=== PATIENT | male | born 1940 | race Caucasian/White ===

== ENCOUNTER 2016-09-09 12:34 | Observation (INO) ==
--- NOTE | 2016-09-09 14:15 | Emergency Department Note ---
Disposition Clinical Impression: Hypoxia, Cough, Low oxygen saturation Disposition: Admitted As Inpatient Condition: Good Time of Disposition: 19:04 General Adult HPI - General Chief complaint: ED Shortness of Breath/Dyspnea Stated complaint: O2 low sent by pcp Time Seen by Provider: 09/09/16 14:14 Source: patient, family Limitations: no limitations Nursing Notes Reviewed: Yes Vital Signs Reviewed: Yes - History of Present Illness HPI Narrative: Patient complaining of a greater than two-week history of generalized weakness. Also shortness of breath and cough. His been a productive cough with yellow sputum. Subjective fevers at home. Denies any history of COPD or asthma. Denies any chest pain. Reports that he does not wear oxygen at home however today at urgent care his oxygen saturation was low. He did have a chest x-ray at urgent care that was read as normal. Pain Scale: 5 - Related Data Home Medications Medication Instructions Recorded Confirmed Allopurinol [Zyloprim 100 MG] 200 mg PO DAILY 09/09/16 09/09/16 Aspirin 325 mg PO DAILY 09/09/16 09/09/16 Atorvastatin [Lipitor] 40 mg PO HS 09/09/16 09/09/16 Citalopram Hydrobromide [Celexa] 40 mg PO DAILY 09/09/16 09/09/16 Clopidogrel Bisulfate [Plavix] 75 mg PO DAILY 09/09/16 09/09/16 Isosorbide MONOnitrate (24 HR) 30 mg PO DAILY 09/09/16 09/09/16 [Imdur] Lisinopril [Zestril] 20 mg PO DAILY 09/09/16 09/09/16 Memantine HCl/Donepezil HCl 1 each PO QPM 09/09/16 09/09/16 [Namzaric 28 mg-10 mg Capsule] Metoprolol [Lopressor] 12.5 mg PO QPM 09/09/16 09/09/16 Nitroglycerin [Nitrostat] 0.4 mg SL Q5M PRN 09/09/16 09/09/16 Omeprazole [PriLOSEC] 40 mg PO BID 09/09/16 09/09/16 Potassium Chloride [Klor-Con 10] 10 meq PO DAILY 09/09/16 09/09/16 Quetiapine Fumarate [Seroquel] 25 mg PO QAM 09/09/16 09/09/16 Quetiapine Fumarate [Seroquel] 37.5 mg PO HS 09/09/16 09/09/16 Tamsulosin [Flomax] 0.4 mg PO DAILY 09/09/16 09/09/16 Tramadol HCl [Ultram] 50 mg PO TID PRN 09/09/16 09/09/16 Triamcinolone Acet 0.1% CRM 1 appl TP BID 09/09/16 09/09/16 [Kenalog] clonazePAM [Klonopin] 0.5 mg PO HS 09/09/16 09/09/16 metFORMIN [Glucophage] 500 mg PO DAILY 09/09/16 09/09/16 Allergies Allergy/AdvReac Type Severity Reaction Status Date / Time Penicillins Allergy Rash Verified 05/12/15 08:28 All systems ED: reviewed and negative except as stated. Constitutional: Reports: chills. Denies: fever Cardiovascular: Reports: dyspnea on exertion. Denies: chest pain, palpitations , syncope Respiratory: Reports: cough, dyspnea, sputum production (Yellow for 2 weeks). Denies: wheezes Gastrointestinal: Denies: abdominal pain, nausea, vomiting, diarrhea Genitourinary: Denies: urgency, dysuria, frequency Musculoskeletal: Denies: back pain, neck pain Integumentary: Denies: rash Neurological: Denies: headache, weakness Psychiatric: Denies: anxiety, depression Past Medical History - Past Medical History Medical history: Reports: arthritis, coronary artery disease, dementia, diabetes , hypertension, other Surgical history: Reports: orthopedic, other (Left total knee replacement; Right hand surgery; Right total knee replacement 01/30/2015), pacemaker/AICD Psychiatric history: Reports: depression - Social History Smoking Status: Never smoker Smokeless Tobacco Status: No Alcohol use: Reports: none Drug use: Reports: none Physical Exam - General Limitations: no limitations General appearance: alert, in no apparent distress - Head Head exam: atraumatic, normocephalic, normal inspection - Eye Eye exam: Present: normal appearance, PERRL, EOMI. Absent: scleral icterus - ENT ENT exam: normal exam, normal oropharynx, mucous membranes moist - Neck Neck exam: Present: normal inspection, full ROM, trachea midline. Absent: tenderness, meningismus, lymphadenopathy - Chest Chest inspection: Present: normal inspection, symmetric chest wall rise. Absent : tenderness - Respiratory Respiratory exam: Present: normal lung sounds bilaterally, other (Mildly diminished in lower lobes.). Absent: respiratory distress, wheezes, accessory muscle use - Cardiovascular Cardiovascular exam: Present: regular rate, normal rhythm, normal heart sounds - Abdominal Exam Abdominal exam: Present: soft, Non-Tender, normal bowel sounds. Absent: tenderness, distention, guarding, rebound, rigidity - Extremities Exam Extremities exam: Present: normal inspection, full ROM, normal capillary refill. Absent: tenderness, pedal edema - Neurological Exam Neurological exam: Present: alert, oriented X3 - Psychiatric Psychiatric exam: Present: normal affect, normal mood - Skin Skin exam: Present: warm, dry, intact. Absent: normal color (No paraoral cyanosis.), rash, cyanosis, diaphoresis, erythema Course Course Narrative: Patient presents the emergency department complaining of 4 week history of productive cough with yellow sputum and shortness of breath. This he has had intermittent chills. Denies checking his temperature at home. Denies any history of COPD or asthma. States that he did try to take antibiotics at home that were left over her previous illness. States that he just has not been feeling well over the past 4 weeks. Denies any chest pain nausea vomiting or diarrhea. Does appear that he has some perioral cyanosis and is 92% on 2 L via nasal cannula. Chest x-ray at urgent care was negative. Due to patient's dyspnea on exertion and dyspnea at rest as well as his hypoxia we will scan patient's chest. We will also do a basic cardiac workup on the patient. His lung sounds are clear. Heart tones are normal. He does not appear fluid overloaded at this time. There is no edema that I can appreciate anywhere. He is not using accessory muscles or tripoding however he does report shortness of breath. - Reevaluation(s) Reevaluation #1: Patient's oxygen saturation is in the low 90s on 2 L at rest. His CTA is negative. Basic lab workup was also negative. He does have a mild AK I. We will admit patient to the hospital for hypoxia. He is agreeable to this. Time: 15:38 Vital Signs Temperature 97.7 F 09/09/16 12:40 Pulse Rate 87 09/09/16 12:40 Respiratory Rate 18 09/09/16 12:40 Blood Pressure 125/76 09/09/16 12:40 O2 Sat by Pulse Oximetry 90 09/09/16 12:40 Temperature 98.0 F 09/09/16 18:30 Pulse Rate 82 09/09/16 17:44 Respiratory Rate 16 09/09/16 18:39 Blood Pressure 121/83 09/09/16 18:30 O2 Sat by Pulse Oximetry 92 09/09/16 18:39 Oxygen Delivery Oxygen Delivery Nasal Cannula Medical Decision Making - Medical Records Medical records reviewed: Yes I reviewed the patient's medical records. - Lab Data Lab results reviewed: Yes I reviewed the patient's lab results. Result diagrams: 09/09/16 14:18 09/09/16 14:18 Lab Results 09/09/16 09/09/16 09/09/16 Range/Units 14:18 14:18 14:18 WBC 7.5 (4.3-11.1) K/mcL RBC 4.93 (4.19-5.50) M/mcL Hgb 14.3 (12.9-16.9) g/dL Hct 44.3 (37.5-50.1) % MCV 89.9 (83.0-100.0) fL MCH 29.0 (28.0-33.3) pg MCHC 32.3 (31.6-35.5) g/dL RDW 14.6 H (11.5-14.5) % Plt Count 161 (140-400) K/mcL MPV 10.6 (9.4-12.4) fL Immature Gran % 0.5 (0-4) % Seg Neutrophils % 64.1 % Lymphocytes % 20.8 % Monocytes % 10.5 % Eosinophils % 3.6 % Basophils % 0.5 % Neutrophils # 4.8 (1.6-8.9) K/mcL Lymphocytes # 1.6 (0.6-4.6) K/mcL Monocytes # 0.8 (0.0-1.3) K/mcL Eosinophils # 0.3 (0.0-0.6) K/mcL Basophils # 0.0 (0.0-0.2) K/mcL Sodium 138 (136-145) mEq/L Potassium 4.8 H (3.5-4.5) mEq/L Chloride 102 (98-109) mEq/L Carbon Dioxide 29 (19-29) mEq/L BUN 18 (8-26) mg/dL Creatinine 1.54 H (0.72-1.25) mg/dL Est GFR ( Amer) 54 L (> 60) Est GFR (Non-Af Amer) 44 L (> 60) BUN/Creatinine Ratio 12 (6-26) Glucose 100 H (70-99) mg/dL Calculated Osmolality 288 (280-300) Lactic Acid 1.9 (0.5-2.2) mmol/L Calcium 10.5 (8.6-10.8) mg/dL Troponin I (0-0.03) ng/mL B-Natriuretic Peptide (0-100) pg/mL 09/09/16 09/09/16 Range/Units 14:18 14:18 WBC (4.3-11.1) K/mcL RBC (4.19-5.50) M/mcL Hgb (12.9-16.9) g/dL Hct (37.5-50.1) % MCV (83.0-100.0) fL MCH (28.0-33.3) pg MCHC (31.6-35.5) g/dL RDW (11.5-14.5) % Plt Count (140-400) K/mcL MPV (9.4-12.4) fL Immature Gran % (0-4) % Seg Neutrophils % % Lymphocytes % % Monocytes % % Eosinophils % % Basophils % % Neutrophils # (1.6-8.9) K/mcL Lymphocytes # (0.6-4.6) K/mcL Monocytes # (0.0-1.3) K/mcL Eosinophils # (0.0-0.6) K/mcL Basophils # (0.0-0.2) K/mcL Sodium (136-145) mEq/L Potassium (3.5-4.5) mEq/L Chloride (98-109) mEq/L Carbon Dioxide (19-29) mEq/L BUN (8-26) mg/dL Creatinine (0.72-1.25) mg/dL Est GFR ( Amer) (> 60) Est GFR (Non-Af Amer) (> 60) BUN/Creatinine Ratio (6-26) Glucose (70-99) mg/dL Calculated Osmolality (280-300) Lactic Acid (0.5-2.2) mmol/L Calcium (8.6-10.8) mg/dL Troponin I 0.01 (0-0.03) ng/mL B-Natriuretic Peptide 20 (0-100) pg/mL - Radiology Data Radiology results reviewed: Yes I reviewed the patient's radiology results. Chest CTA 09/09/16 14:23 IMPRESSION: No evidence of pulmonary embolism when accounting for motion artifact. No acute pulmonary abnormality. D/ / Kevan Nowak MD / Kevan Nowak MD Interpreting Provider: Kevan Nowak MD - EKG Data EKG #1 EKG attestation: Yes I reviewed and interpreted this EKG. EKG results narrative: Normal sinus rhythm at a rate of 75. TX interval was 200. Respirations 23. QT is 367. QTC is 391. No signs of acute ischemia. No significant change from previous EKG dated 07/11/2016. Attestation Statement - Attestation Attestation: I examined this patient and my medical decision-making was reviewed with the Resident Physician. I agree with the documented findings, disposition and treatment plan as described except to the extent set forth below. Patient to the emergency department with shortness of breath. Weakness. Patient states he just does not feel like doing anything and that is not like him. He went to urgent care with hypoxic sustaining her for further evaluation. X-ray was clear at that time. On examination he is laying in bed in no acute distress. Lungs are diminished. Plan. We will check CTA. Creatinine slightly elevated. We will give him a fluid bolus as his baseline is lower than this.
[2016-09-09 14:26] LABS: Basophils % 0.5 %; Eosinophils # 0.3 K/mcL (0.0-0.6); Eosinophils % 3.6 %; Hematocrit 44.3 % (37.5-50.1); Hemoglobin 14.3 g/dL (12.9-16.9); Immature Granulocytes % 0.5 % (0-4); Lymphocytes # 1.6 K/mcL (0.6-4.6); Lymphocytes % 20.8 %; Mean Corpuscular HGB Conc 32.3 g/dL (31.6-35.5); Mean Corpuscular Volume 89.9 fL (83.0-100.0); Mean Platelet Volume 10.6 fL (9.4-12.4); Monocytes # 0.8 K/mcL (0.0-1.3); Monocytes % 10.5 %; Neutrophils # 4.8 K/mcL (1.6-8.9); Platelet Count 161 K/mcL (140-400); Red Blood Count 4.93 M/mcL (4.19-5.50); Red Cell Distribution Width 14.6 % (11.5-14.5); Segmented Neutrophils % 64.1 %
[2016-09-09] MEDS ORDERED: 0.9 % Sodium Chloride 500 ML IVC ONE (14:38)
[2016-09-09 14:39] LABS: Calcium 10.5 mg/dL (8.6-10.8); Potassium 4.8 mEq/L (3.5-4.5)
[2016-09-09] MEDS ORDERED: Ipratropium/Albuterol Neb 3 ML IH ONE (17:55)
[2016-09-09] MEDS ORDERED: methylPREDNISolone 125 MG/2 ML VIAL IVP ONE (17:55)
[2016-09-09] MEDS ORDERED: Nitroglycerin 0.4 MG TAB.SUBL SL PRN (21:57)
[2016-09-09] MEDS ORDERED: Naloxone 0.4 MG/ML INJ IVP PRN (21:59)
[2016-09-09] MEDS ORDERED: Dextrose Gel 15 GM PO PRN ×2 (21:59)
[2016-09-09] MEDS ORDERED: D5% in Water 1,000 ML IVC PRN (21:59)
[2016-09-09] MEDS ORDERED: *HR* Dextrose 50 % in Water (Syg) 50 ML SYRINGE IVP PRN (21:59)
[2016-09-09] MEDS ORDERED: Ipratropium/Albuterol Neb 3 ML IH PRN (22:02)
--- NOTE | 2016-09-09 22:08 | Internal Med History&Physical ---
Date of Encounter: 09/09/16 Time of Encounter: 22:04 Assessment and Plan (1) Acute respiratory failure Current visit: Yes Status: Acute CTPE wnl. Check TTE, check for pulm HTN. Consult pulm to assist with eval. Hydration for post contrast exposure with CTPE Qualifiers: Qualified Code(s): J96.01 - Acute respiratory failure with hypoxia (2) Hypoxia Current visit: Yes Status: Acute uncertain etiology. Pending further evaluation with pulm assistance (3) DMII (diabetes mellitus, type 2) Current visit: Yes Status: Acute hold metformin. ISS Qualifiers: Qualified Code(s): E11.9 - Type 2 diabetes mellitus without complications (4) CAD (coronary artery disease) Current visit: Yes Status: Acute continue current meds. CAD s/p stents Qualifiers: Qualified Code(s): I25.10 - Atherosclerotic heart disease of [place] coronary artery without angina pectoris (5) Physical deconditioning Current visit: Yes Status: Acute PT eval for suitability for home vs placement Internal Medicine - H&P: HPI Chief complaint: SOB History of present illness: Mr. Hughes is a 76 year old male with hx of CAD s/p stent in and , hx of CHF s/p pacer but surgeon said his heart had been back to normal and didn't require pacer, DMII, neuropathy, HTN who presents with worsening subacute on chronic SOB. He says that he has noticed SOB for the last 1 year now but in the last 6 weeks, noted increasing SOB with cough productive of yellow sputum. He does not use oxygen at baseline. He tells me that he does not smoke. Associated with 2 week hx of generalized fatigue and weakness due to SOB and not ambulatory. Went to urgent care today and found hypoxia. CTPE in the ED was wnl. EKG reviewed by self rate 75, unchanged BBB from prior Past Med Surg Social Fam HX - Past Medical History Medical history: arthritis, coronary artery disease, dementia, diabetes, hypertension, other Psychiatric history: depression - Past Surgical History Surgical History: orthopedic, other, pacemaker/AICD - Social History Smoking Status: Never smoker Smokeless Tobacco Status: No Alcohol use: none Drug use: none - Family History Mother History Unknown: Yes Internal Medicine - H&P: Meds Allopurinol [Zyloprim 100 MG] 200 mg PO DAILY 09/09/16 [History] Aspirin 325 mg PO DAILY 09/09/16 [History] Atorvastatin [Lipitor] 40 mg PO HS 09/09/16 [History] Citalopram Hydrobromide [Celexa] 40 mg PO DAILY 09/09/16 [History] Clopidogrel Bisulfate [Plavix] 75 mg PO DAILY 09/09/16 [History] Isosorbide MONOnitrate (24 HR) [Imdur] 30 mg PO DAILY 09/09/16 [History] Lisinopril [Zestril] 20 mg PO DAILY 09/09/16 [History] Memantine HCl/Donepezil HCl [Namzaric 28 mg-10 mg Capsule] 1 each PO QPM [History] Metoprolol [Lopressor] 12.5 mg PO QPM 09/09/16 [History] Nitroglycerin [Nitrostat] 0.4 mg SL Q5M PRN 09/09/16 [History] Omeprazole [PriLOSEC] 40 mg PO BID 09/09/16 [History] Potassium Chloride [Klor-Con 10] 10 meq PO DAILY 09/09/16 [History] Quetiapine Fumarate [Seroquel] 25 mg PO QAM 09/09/16 [History] Quetiapine Fumarate [Seroquel] 37.5 mg PO HS 09/09/16 [History] Tamsulosin [Flomax] 0.4 mg PO DAILY 09/09/16 [History] Tramadol HCl [Ultram] 50 mg PO TID PRN 09/09/16 [History] Triamcinolone Acet 0.1% CRM [Kenalog] 1 appl TP BID 09/09/16 [History] clonazePAM [Klonopin] 0.5 mg PO HS 09/09/16 [History] metFORMIN [Glucophage] 500 mg PO DAILY 09/09/16 [History] Allergies Penicillins Allergy (Verified 05/12/15 08:28) Rash All Systems PM: A 10-system review of systems was performed and is negative for pertinent findings except as documented above in the HPI. Review of systems: ROS 14 point review of systems reviewed as best as possible given presentation. Pertinent positive or negative as per HPI or otherwise reviewed as negative - Constitutional Vitals: Temp Pulse Resp BP Pulse Ox 98.3 F 77 19 132/75 96 09/09/16 19:24 07/31/17 19:24 09/09/16 19:24 09/09/16 19:24 09/09/16 19:24 Exam: General - AAO x 3 Psych - Appropriate affect/speech. No agitation Eyes - ROXANA. Eye lids intact. No scleral icterus ENT - Oral mucosa pink, dentition intact. External ear clear/dry/intact. No thyromegaly Lymphatics - No cervical/inguinal lympadenopathy Neuro - No gross peripheral or central neuro deficits with intact CN 2-12 exam Heart - Sinus. RRR. S1 and S2 present. No added HS/murmurs appreciated. No elevated JVD appreciated. No calf swellings/erythema Lung - Adequate air entry b/l, No crackes/wheezes appreciated GI - Soft, non-tender. No hepatosplenomegaly/ascities. BS+ - No CVA/suprapubic tenderness or palpable bladder distension Skin - Intact. No rash/petechiae/ecchymosis. Warm extremities MSK - Joints with normal ROM. No joint swellings Internal Med - H&P Results - Labs CBC & Chem 7: 09/09/16 14:18 09/09/16 14:18
[2016-09-09] MEDS ORDERED: 0.9 % Sodium Chloride 1,000 ML ONE (22:14)
[2016-09-09] MEDS: 0.9 % Sodium Chloride 1,000 ML IVC SCH (22:30)
[2016-09-10] MEDS: Ipratropium/Albuterol Neb 3 ML IH SCH ×4 (04:03→21:53)
[2016-09-10] MEDS ORDERED: Acetaminophen 325 MG TABLET PO PRN (05:02)
[2016-09-10] MEDS: *HR* Enoxaparin 40 MG/0.4 ML SYRINGE SQ SCH (05:09)
[2016-09-10 07:54] LABS: Hematocrit 40.8 % (37.5-50.1); Hemoglobin 13.3 g/dL (12.9-16.9); Mean Corpuscular HGB Conc 32.6 g/dL (31.6-35.5); Mean Corpuscular Volume 88.9 fL (83.0-100.0); Mean Platelet Volume 10.7 fL (9.4-12.4); Platelet Count 141 K/mcL (140-400); Red Blood Count 4.59 M/mcL (4.19-5.50); Red Cell Distribution Width 14.6 % (11.5-14.5)
[2016-09-10 08:10] LABS: Albumin 3.5 g/dL (3.5-5.0); Albumin/Globulin Ratio 1.1 (1.1-2.2); Bilirubin,Total 0.7 mg/dL (0.2-1.2); Calcium 9.9 mg/dL (8.6-10.8); Globulin 3.3 g/dL (2.4-3.5); Magnesium 1.5 mg/dL (1.6-2.6); Potassium 4.7 mEq/L (3.5-4.5); Total Protein 6.8 g/dL (6.0-8.3)
[2016-09-10] MEDS ORDERED: Aspirin 325 MG TABLET PO SCH (09:00)
--- NOTE | 2016-09-10 09:11 | Electrocardiograph Report ---
[place] [id number] Test Date: 2016-09-09 Pat Name: Óscar Hughes Department: 104 Room: 2A Gender: M [employer]: : 1940 Requested By: Pricilla See Order Number: [id number] Reading MD: Aydee Hawkins Measurements Intervals [place] Rate: 75 P: 14 NH: 200 QRS: -17 QRSD: 103 T: 53 QT: 361 QTc: 391 Interpretive Statements SINUS RHYTHM INCOMPLETE RIGHT BUNDLE BRANCH BLOCK INFERIOR MYOCARDIAL INFARCTION, PROBABLY OLD Electronically Signed On 09-10-2016 9:10:26 EDT by Aydee Hawkins
[2016-09-10] MEDS: Aspirin Enteric Coated 325 MG Tablet PO SCH (09:42)
[2016-09-10] MEDS: Isosorbide MONOnitrate (24 HR) 30 MG TAB.ER.24H PO SCH (09:42)
[2016-09-10] MEDS: Lisinopril 20 MG TABLET PO SCH (09:43)
[2016-09-10] MEDS: Insulin LISPRO 300 UNITS/3 ML VIAL SQ SCH ×4 (09:45→23:59)
[2016-09-10] MEDS ORDERED: Magnesium Oxide 400 MG TABLET PO ONE (09:56)
[2016-09-10] MEDS: 0.9 % Sodium Chloride 1,000 ML IVC SCH (15:42)
--- NOTE | 2016-09-10 15:42 | Internal Med Progress Note ---
<Gisell Johnson - Last Filed: 09/10/16 15:39> Date of Encounter: 09/10/16 Time of Encounter: 15:39 - Assessment and plan (1) Acute respiratory failure Current Visit: Yes Status: Acute Assessment and plan: patient states that at home his pulse ox was in 80s-90s. chest CTA showed no evidence of PE, no acute abnormality noted. Echo showed LVEF 65%, mild concentric LVH, mild diastolic dysfunction, no evidnece of pulmonary hypertension, no significant valvular dysfunction. EKG showed incomplete RBBB, sinus rhythm, prior infior WA. Plan: patient still requiring oxygen today. will attempt to wean off possible discharge tomorrow. may benefit from outpatient PFTs continue CPAP at night. etiology of acute resp failure unclear at this time. could possibly be due to a component of obesity hypoventilation syndrome. Qualifiers: Qualified Code(s): J96.01 - Acute respiratory failure with hypoxia (2) Hypoxia Current Visit: Yes Status: Acute Assessment and plan: plan as above (3) DMII (diabetes mellitus, type 2) Current Visit: Yes Status: Acute Assessment and plan: hold metformin, low dose sliding scale insulin. Qualifiers: Diabetes mellitus complication status: with unspecified complications Diabetes mellitus long term care phlebotomist insulin use: unspecified long term care phlebotomist insulin use status Qualified Code(s): E11.8 - Type 2 diabetes mellitus with unspecified complications (4) CAD (coronary artery disease) Current Visit: Yes Status: Acute Assessment and plan: continue home meds. Qualifiers: Qualified Code(s): I25.10 - Atherosclerotic heart disease of [place] coronary artery without angina pectoris (5) DVT prophylaxis Current Visit: Yes Status: Acute Assessment and plan: Lovenox - Subjective Interval history: 76 year old male evaluated at bedside. patient denies cough,states he does not wear oxygen at home, denies history of smoking. he states that at home, his pulse ox was between 80-90%. he elli nausea, vomiting, diarrhea, fever, chills. he denies chest pain. he reports cough with yellow sputum production. - Constitutional Vitals: Temp Pulse Resp BP Pulse Ox 98.0 F 99 19 132/70 97 09/10/16 10:53 09/10/16 10:53 09/10/16 10:53 09/10/16 10:53 09/10/16 10:53 General appearance: Present: A&O X 3, pleasant, no acute distress, answers questions appropriately - Head Head exam: Present: atraumatic, normocephalic - Neck Neck exam general surgery: Present: supple, trachea midline - Respiratory Respiratory exam: Present: CTAB - Cardiovascular Cardiovascular exam: Present: RRR Additional comments: +2/6 systolic murmur present at left upper sternal border. - GI/Abdominal GI/Abdominal exam: Present: firm, normal bowel sounds. Absent: tenderness - Extremities Exam Extremities exam: Absent: cyanotic, pedal edema - Neurological Exam Neurological exam: Present: alert, oriented X3 - Psychiatric Psychiatric exam: Present: normal affect, normal mood - Skin Skin exam: Present: intact Internal Medicine: Result - Labs CBC & Chem 7: 09/10/16 07:23 09/10/16 07:23 Labs: Short CBC 09/10/16 Range/Units 07:23 WBC 9.8 (4.3-11.1) K/mcL Hgb 13.3 (12.9-16.9) g/dL Hct 40.8 (37.5-50.1) % Plt Count 141 (140-400) K/mcL BMP 09/10/16 07:23 Sodium 135 L Potassium 4.7 H Chloride 102 Carbon Dioxide 24 BUN 24 Creatinine 1.48 H Glucose 196 H Calcium 9.9 Liver Function 09/10/16 Range/Units 07:23 Total Bilirubin 0.7 (0.2-1.2) mg/dL AST 21 (5-34) Units/L ALT 26 (0-55) Units/L Alkaline Phosphatase 72 (38-126) Units/L Albumin 3.5 (3.5-5.0) g/dL Consult Discharge Plan - Plan Referrals: Zahra Christianson, ACTUARIAL MATHEMATICIAN [Primary Care Provider] - (web request 09/10/2016) <Speedy Hodges - Last Filed: 09/10/16 17:16> Date of Encounter: 09/10/16 - Constitutional Vitals: Temp Pulse Resp BP Pulse Ox 98.4 F 77 16 108/65 94 09/10/16 15:48 09/10/16 15:48 09/10/16 16:02 09/10/16 15:48 09/10/16 16:02 Internal Medicine: Result - Labs CBC & Chem 7: 09/10/16 07:23 09/10/16 07:23 Labs: Short CBC 09/10/16 Range/Units 07:23 WBC 9.8 (4.3-11.1) K/mcL Hgb 13.3 (12.9-16.9) g/dL Hct 40.8 (37.5-50.1) % Plt Count 141 (140-400) K/mcL BMP 09/10/16 07:23 Sodium 135 L Potassium 4.7 H Chloride 102 Carbon Dioxide 24 BUN 24 Creatinine 1.48 H Glucose 196 H Calcium 9.9 Liver Function 09/10/16 Range/Units 07:23 Total Bilirubin 0.7 (0.2-1.2) mg/dL AST 21 (5-34) Units/L ALT 26 (0-55) Units/L Alkaline Phosphatase 72 (38-126) Units/L Albumin 3.5 (3.5-5.0) g/dL - Attending Attestation I examined this patient and my medical decision-making was reviewed with the Resident Physician on 09/09/16. I agree with the documented findings, disposition and treatment plan as described except to the extent set forth below. 76 M admitted and being managed for Acute on chronic hypoxic respiratory failure , JASVIR-not compliant with CPAP, DMII, CKD III, Obesity, Deconditioning He is seen and evaluated at bedside He has no new complains Physical exam: VSS, no form of distress, AAOX3, chest is CTAB, hear S1, s2 only no m/g/r, abdomen is soft, no pedal edema Labs and Imaging reviewed A/P Acute on chronic hypoxic resp failure multifactorial: Non-compliance with CPAP, OHS, Diastolic dysfunction. Patient needs qualification for home O2 His other chronic medical conditions are stable PT/OT recommends return home Rest of details as in resident physicians documentation
[2016-09-10] MEDS ORDERED: Namzaric 28 Mg-10 Mg PO SCH (18:00)
[2016-09-10] MEDS: clonazePAM 0.5 MG TABLET PO SCH (19:50)
[2016-09-11] MEDS: Ipratropium/Albuterol Neb 3 ML IH SCH ×4 (03:48→22:21)
[2016-09-11] MEDS: *HR* Enoxaparin 40 MG/0.4 ML SYRINGE SQ SCH (05:09)
--- NOTE | 2016-09-11 06:28 | Discharge Summary ---
Date of Encounter: 09/11/16 Time of Encounter: 06:24 - Discharge Diagnosis (1) Acute respiratory failure Priority: Primary Status: Acute Qualifiers: Respiratory failure complication: hypoxia Qualified Code(s): J96.01 - Acute respiratory failure with hypoxia (2) Hypoxia Priority: Secondary Status: Chronic (3) DMII (diabetes mellitus, type 2) Priority: Secondary Status: Chronic Qualifiers: Diabetes mellitus complication status: with unspecified complications Diabetes mellitus fdc insulin use: unspecified fdc insulin use status Qualified Code(s): E11.8 - Type 2 diabetes mellitus with unspecified complications (4) CAD (coronary artery disease) Priority: Secondary Status: Chronic Qualifiers: Coronary Disease-Associated Artery/Lesion type: unspecified vessel or lesion type [place] vs. transplanted heart: unspecified whether [place] or transplanted heart Associated angina: without angina Qualified Code(s): I25.10 - Atherosclerotic heart disease of [place] coronary artery without angina pectoris (5) DVT prophylaxis Priority: Secondary Status: Acute - Discharge Medications Prescriptions: Metoprolol [Lopressor] 12.5 mg PO BID #60 tab Home Medications: Allopurinol [Zyloprim 100 MG] 200 mg PO DAILY 09/09/16 [History] Aspirin 325 mg PO DAILY 09/09/16 [History] Atorvastatin [Lipitor] 40 mg PO HS 09/09/16 [History] Citalopram Hydrobromide [Celexa] 40 mg PO DAILY 09/09/16 [History] Clopidogrel Bisulfate [Plavix] 75 mg PO DAILY 09/09/16 [History] Isosorbide MONOnitrate (24 HR) [Imdur] 30 mg PO DAILY 09/09/16 [History] Lisinopril [Zestril] 20 mg PO DAILY 09/09/16 [History] Memantine HCl/Donepezil HCl [Namzaric 28 mg-10 mg Capsule] 1 each PO QPM [History] Nitroglycerin [Nitrostat] 0.4 mg SL Q5M PRN 09/09/16 [History] Omeprazole [PriLOSEC] 40 mg PO BID 09/09/16 [History] Potassium Chloride [Klor-Con 10] 10 meq PO DAILY 09/09/16 [History] Quetiapine Fumarate [Seroquel] 25 mg PO QAM 09/09/16 [History] Tamsulosin [Flomax] 0.4 mg PO DAILY 09/09/16 [History] Tramadol HCl [Ultram] 50 mg PO TID PRN 09/09/16 [History] Triamcinolone Acet 0.1% CRM [Kenalog] 1 appl TP BID 09/09/16 [History] clonazePAM [Klonopin] 0.5 mg PO HS 09/09/16 [History] metFORMIN [Glucophage] 500 mg PO DAILY 09/09/16 [History] Metoprolol [Lopressor] 12.5 mg PO BID #60 tab 09/11/16 [Rx] Allergies/Adverse Reactions: Allergies Penicillins Allergy (Verified 05/12/15 08:28) Rash Procedures/tests Complete & Pending: Procedures Performed prior 72 hours Category Date Time Status EV echocardiogram Routine Y 09/10/16 22:02 Completed Date of admission: 09/09/16 21:59 Primary care physician: Zahra Christianson CNP Consults: 09/09/16 22:01 Consult to Pulmonology [CONS] Routine Consulting Provider: [facility] Reason for Consult: eval of SOB Call Completed: No 09/09/16 22:03 Consult to Physical Therapy [CONS] Routine Comment: Evaluate, develop and implement POC Reason for Consult: physical therapy, weakness 09/10/16 15:43 Consult to Respiratory Therapy [CONS] Routine Reason for Consult: manage CPAP nightly. please use mask with small nose piece. Call Completed: No - Patient Status Disposition: Home, Self-Care Condition: Good Functional capacity at discharge: independent ambulation Overall status at discharge: patient is progressing back to baseline - Ambulatory Orders Ambulatory Orders: SP PFT screen Time Frame: 1 Week, Facility: [facility], Location: Lab - Discharge Instructions Follow Up With: Zahra Christianson CNP [Primary Care Provider] - 09/18/16 2:40 pm (web request ) Additional Instructions: please follow up with primary care doctor within 3-5 days of discharge. please take all meds as prescribed get outpatient pulmonary function testing done. return to emergency department if you develop chest pain or worsening shortness of breath. Please wear oxygen as needed, and have primary care doctor reassess. - Diet and Activity Activity: increase activity as tolerated Diet: diabetic diet, low fat, low cholesterol Hospital course: Mr. Hughes is a 76 year old male with PMHx of CAD (s/p stent placement), hx of CHF , DMII, JASVIR, neuropathy, HTN. patient was admitted to [facility] on 09/09/16 for acute hypoxic respiratory failure and worsening shortness of breath. He stated that he had chronic shortness of breath for about the past year, and this has worsened during the last 6 weeks. Patient does not use oxygen at baseline, and has no history of smoking. EKG showed sinus rhythm with incomplete RBBB, old inferior TX. CTA showed no evidence of pulmonary embolism, no acute pulmonary abnormality. Echo was done but was suboptimal and showed LVEF 65%, normal LV chamber size and function, mild concentric LVH, mild LV diastolic dysfnction, atypical septal wall motion with paced rhythm, no evidence of pulmonary hypertension, no valvular dysfunction. Patient's shortness of breath is likely multifactorial secondary to noncomplilance with CPAP, possible component of obesity hypoventilation syndrome, underlying lung disease. He was given scripts for outpatient pulmonary function testing. He had six minute walk while in the hospital and was approved for oxygen. Script was given to patient. Plan: please follow up with primary care doctor within 3-5 days of discharge. please take all meds as prescribed get outpatient pulmonary function testing done. return to emergency department if you develop chest pain or worsening shortness of breath. Please wear oxygen as needed, and have primary care doctor reassess. - Time Spent with Patient Total time spent providing and/or coordinating discharge services: - Constitutional Vitals: Temp Pulse Resp BP Pulse Ox 97.7 F 74 17 125/71 98 09/11/16 04:00 09/11/16 04:00 09/11/16 04:00 09/11/16 04:00 09/11/16 04:00 General appearance: Present: A&O X 3, pleasant, no acute distress, answers questions appropriately - Head Head exam: Present: atraumatic, normocephalic - Respiratory Respiratory exam: Present: CTAB - Cardiovascular Cardiovascular exam: Present: RRR, +S1, +S2 - Extremities Exam Extremities exam: Absent: cyanotic, pedal edema - Neurological Exam Neurological exam: Present: alert, oriented X3, no focal deficits - Psychiatric Psychiatric exam: Present: normal affect, normal mood - Skin Skin exam: Present: intact
[2016-09-11 06:43] LABS: Basophils % 0.1 %; Eosinophils % 0.3 %; Hematocrit 39.9 % (37.5-50.1); Hemoglobin 13.1 g/dL (12.9-16.9); Immature Granulocytes % 0.4 % (0-4); Lymphocytes # 1.7 K/mcL (0.6-4.6); Lymphocytes % 12.6 %; Mean Corpuscular HGB Conc 32.8 g/dL (31.6-35.5); Mean Corpuscular Hemoglobin 29.6 pg (28.0-33.3); Mean Corpuscular Volume 90.1 fL (83.0-100.0); Mean Platelet Volume 10.3 fL (9.4-12.4); Monocytes % 7.5 %; Neutrophils # 10.7 K/mcL (1.6-8.9); Platelet Count 138 K/mcL (140-400); Red Blood Count 4.43 M/mcL (4.19-5.50); Red Cell Distribution Width 14.8 % (11.5-14.5); Segmented Neutrophils % 79.1 %
[2016-09-11 06:55] LABS: BUN/Creatinine Ratio 20 (6-26); Blood Urea Nitrogen 26 mg/dL (8-26); Carbon Dioxide 26 mEq/L (19-29); Chloride 102 mEq/L (98-109); Glucose 114 mg/dL (70-99); Osmolality,Calculated 286 (280-300); Potassium 5.3 mEq/L (3.5-4.5); Sodium 135 mEq/L (136-145); eGFR For African Americans > 60 (> 60); eGFR For Non-African Americans 55 (> 60)
[2016-09-11] MEDS: Insulin LISPRO 300 UNITS/3 ML VIAL SQ SCH ×4 (08:41→21:31)
[2016-09-11] MEDS: Lisinopril 20 MG TABLET PO SCH (08:42)
[2016-09-11] MEDS: Isosorbide MONOnitrate (24 HR) 30 MG TAB.ER.24H PO SCH (08:43)
[2016-09-11] MEDS: Aspirin Enteric Coated 325 MG Tablet PO SCH (08:43)
[2016-09-11 09:21] LABS: Basophils % 0.2 %; Eosinophils # 0.1 K/mcL (0.0-0.6); Eosinophils % 0.6 %; Hematocrit 44.3 % (37.5-50.1); Immature Granulocytes % 0.6 % (0-4); Lymphocytes # 2.1 K/mcL (0.6-4.6); Lymphocytes % 13.3 %; Mean Corpuscular HGB Conc 31.6 g/dL (31.6-35.5); Mean Corpuscular Hemoglobin 28.7 pg (28.0-33.3); Mean Platelet Volume 10.7 fL (9.4-12.4); Monocytes # 0.9 K/mcL (0.0-1.3); Monocytes % 5.9 %; Neutrophils # 12.4 K/mcL (1.6-8.9); Platelet Count 175 K/mcL (140-400); Red Blood Count 4.87 M/mcL (4.19-5.50); Red Cell Distribution Width 14.8 % (11.5-14.5); Segmented Neutrophils % 79.4 %
[2016-09-11 13:18] LABS: Bilirubin,Urine Negative (Negative); Blood,Urine Negative (Negative); Clarity,Urine Clear (Clear); Color,Urine Yellow (Yellow); Ketones,Urine Negative (Negative); Leukocyte Esterase,Urine Negative (Negative); Nitrite,Urine Negative (Negative); Protein,Urine Negative (Neg-Trace); Specific Gravity,Urine 1.013 (1.010-1.025); Urobilinogen,Urine Normal (Normal)
[2016-09-11 13:19] LABS: Glucose,Urine (UA) Normal (Normal)
--- NOTE | 2016-09-11 15:22 | Internal Med Progress Note ---
<Gisell Johnson - Last Filed: 09/11/16 15:19> Date of Encounter: 09/11/16 Time of Encounter: 15:19 - Assessment and plan (1) Leukocytosis Current Visit: Yes Status: Acute Assessment and plan: patient was ready for discharge today, but developed elevated WBC. etiology unclear at this time urinalysis does not show any signs of infection. 2 view chest xray pending. Qualifiers: Leukocytosis type: unspecified Qualified Code(s): D72.829 - Elevated white blood cell count, unspecified (2) Acute respiratory failure Current Visit: Yes Status: Acute Assessment and plan: patient states that at home his pulse ox was in 80s-90s. chest CTA showed no evidence of PE, no acute abnormality noted. Echo showed LVEF 65%, mild concentric LVH, mild diastolic dysfunction, no evidnece of pulmonary hypertension, no significant valvular dysfunction. EKG showed incomplete RBBB, sinus rhythm, prior infior MD. Plan: wean off oxygen as tolerated. outpatient PFTs continue CPAP at night. etiology of acute resp failure unclear at this time. could possibly be due to a component of obesity hypoventilation syndrome. Qualifiers: Respiratory failure complication: hypoxia Qualified Code(s): J96.01 - Acute respiratory failure with hypoxia (3) Hypoxia Current Visit: Yes Status: Chronic Assessment and plan: plan as above (4) DMII (diabetes mellitus, type 2) Current Visit: Yes Status: Chronic Assessment and plan: hold metformin, low dose sliding scale insulin. Qualifiers: Diabetes mellitus complication status: with unspecified complications Diabetes mellitus usp insulin use: unspecified rodent exterminator insulin use status Qualified Code(s): E11.8 - Type 2 diabetes mellitus with unspecified complications (5) CAD (coronary artery disease) Current Visit: Yes Status: Chronic Assessment and plan: continue home meds. (6) DVT prophylaxis Current Visit: Yes Status: Acute Assessment and plan: Lovenox - Subjective Interval history: 76 year old male evaluated at bedside. patient was ready for discharge and had home oxygen qualification, but his morning labs came back and he had elevated white count. he denies nausea, vomiting, diarrhea, fever, chills, cough, shortness of breath, chest pain. he denies any complaints today. - Constitutional Vitals: Temp Pulse Resp BP Pulse Ox 97.6 F 68 18 127/74 90 09/11/16 11:00 09/11/16 11:00 09/11/16 11:00 09/11/16 11:00 09/11/16 11:00 General appearance: Present: A&O X 3, pleasant, no acute distress, answers questions appropriately - Head Head exam: Present: atraumatic, normocephalic - Neck Neck exam general surgery: Present: supple, trachea midline - Respiratory Respiratory exam: Present: CTAB - Cardiovascular Cardiovascular exam: Present: RRR, +S1, +S2 - GI/Abdominal GI/Abdominal exam: Present: hypoactive bowel sounds, soft. Absent: distended, tenderness - Extremities Exam Extremities exam: Absent: cyanotic, pedal edema - Neurological Exam Neurological exam: Present: alert, oriented X3, no focal deficits - Psychiatric Psychiatric exam: Present: normal affect, normal mood - Skin Skin exam: Present: intact Internal Medicine: Result - Labs CBC & Chem 7: 09/11/16 09:07 09/11/16 06:35 Labs: Short CBC 09/11/16 09/11/16 Range/Units 06:35 09:07 WBC 13.5 H 15.6 H (4.3-11.1) K/mcL Hgb 13.1 14.0 (12.9-16.9) g/dL Hct 39.9 44.3 (37.5-50.1) % Plt Count 138 L 175 (140-400) K/mcL Neutrophils # 10.7 H 12.4 H (1.6-8.9) K/mcL BMP 09/11/16 06:35 Sodium 135 L Potassium 5.3 H Chloride 102 Carbon Dioxide 26 BUN 26 Creatinine 1.27 H Glucose 114 H Calcium 10.0 Urine 09/11/16 Range/Units 13:00 Urine Color Yellow (Yellow) Urine Clarity Clear (Clear) Urine pH 6.0 (5.0-8.0) pH Units Ur Specific [place] 1.013 (1.010-1.025) Urine Protein Negative (Neg-Trace) mg/dL Urine Glucose (UA) Normal (Normal) mg/dL Consult Discharge Plan - Plan Additional Instructions: please follow up with primary care doctor within 3-5 days of discharge. please take all meds as prescribed get outpatient pulmonary function testing done. return to emergency department if you develop chest pain or worsening shortness of breath. Please wear oxygen as needed, and have primary care doctor reassess. Referrals: Zahra Christianson CNP [Primary Care Provider] - 09/18/16 2:40 pm (web request ) Prescriptions: Metoprolol [Lopressor] 12.5 mg PO BID #60 tab <Speedy Hodges T - Last Filed: 09/11/16 16:55> Date of Encounter: 09/11/16 - Constitutional Vitals: Temp Pulse Resp BP Pulse Ox 97.5 F L 63 18 120/72 95 09/11/16 15:46 09/11/16 15:46 09/11/16 16:06 09/11/16 15:46 09/11/16 16:06 Internal Medicine: Result - Labs CBC & Chem 7: 09/11/16 09:07 09/11/16 06:35 Labs: Short CBC 09/11/16 09/11/16 Range/Units 06:35 09:07 WBC 13.5 H 15.6 H (4.3-11.1) K/mcL Hgb 13.1 14.0 (12.9-16.9) g/dL Hct 39.9 44.3 (37.5-50.1) % Plt Count 138 L 175 (140-400) K/mcL Neutrophils # 10.7 H 12.4 H (1.6-8.9) K/mcL BMP 09/11/16 06:35 Sodium 135 L Potassium 5.3 H Chloride 102 Carbon Dioxide 26 BUN 26 Creatinine 1.27 H Glucose 114 H Calcium 10.0 Urine 09/11/16 Range/Units 13:00 Urine Color Yellow (Yellow) Urine Clarity Clear (Clear) Urine pH 6.0 (5.0-8.0) pH Units Ur Specific [place] 1.013 (1.010-1.025) Urine Protein Negative (Neg-Trace) mg/dL Urine Glucose (UA) Normal (Normal) mg/dL - Attending Attestation I examined this patient and my medical decision-making was reviewed with the Resident Physician on 09/11/16. I agree with the documented findings, disposition and treatment plan as described except to the extent set forth below. 76 M admitted and being managed for Acute on chronic hypoxic respiratory failure , JASVIR-not compliant with CPAP, DMII, CKD III, Obesity, Deconditioning He is seen and evaluated at bedside He has no new complains Physical exam: VSS, no form of distress, AAOX3, chest is CTAB, hear S1, s2 only no m/g/r, abdomen is soft, no pedal edema Labs and Imaging reviewed A/P Acute on chronic hypoxic resp failure multifactorial: Non-compliance with CPAP, OHS, Diastolic dysfunction. Patient qualified for home O2 Leukocytosis of unclear etiology, obtain CXR, UA is unremarkable. No antiniotics for now, patient has no SIRS criteria Rest of details as in resident physicians documentation Per MOMO Mcduffie, A review by [email or web address] and a nina of the [facility] review commitee determine dthat the patient status be changed to observation using the code 44.
[2016-09-11] MEDS: clonazePAM 0.5 MG TABLET PO SCH (20:52)
[2016-09-12] MEDS: Ipratropium/Albuterol Neb 3 ML IH SCH ×2 (03:57→11:18)
[2016-09-12] MEDS: *HR* Enoxaparin 40 MG/0.4 ML SYRINGE SQ SCH (05:46)
[2016-09-12 06:10] LABS: Basophils % 0.6 %; Eosinophils # 0.2 K/mcL (0.0-0.6); Eosinophils % 3.4 %; Hematocrit 42.5 % (37.5-50.1); Hemoglobin 13.8 g/dL (12.9-16.9); Immature Granulocytes % 0.6 % (0-4); Lymphocytes # 1.7 K/mcL (0.6-4.6); Lymphocytes % 24.4 %; Mean Corpuscular HGB Conc 32.5 g/dL (31.6-35.5); Mean Corpuscular Hemoglobin 29.2 pg (28.0-33.3); Mean Corpuscular Volume 89.9 fL (83.0-100.0); Mean Platelet Volume 10.2 fL (9.4-12.4); Monocytes # 0.6 K/mcL (0.0-1.3); Monocytes % 9.1 %; Neutrophils # 4.2 K/mcL (1.6-8.9); Platelet Count 136 K/mcL (140-400); Red Blood Count 4.73 M/mcL (4.19-5.50); Red Cell Distribution Width 14.8 % (11.5-14.5); Segmented Neutrophils % 61.9 %
[2016-09-12] MEDS: Insulin LISPRO 300 UNITS/3 ML VIAL SQ SCH ×2 (07:53→11:47)
[2016-09-12 08:14] LABS: BUN/Creatinine Ratio 19 (6-26); Blood Urea Nitrogen 22 mg/dL (8-26); Carbon Dioxide 28 mEq/L (19-29); Chloride 99 mEq/L (98-109); Glucose 104 mg/dL (70-99); Osmolality,Calculated 282 (280-300); Potassium 4.5 mEq/L (3.5-4.5); Sodium 134 mEq/L (136-145); eGFR For African Americans > 60 (> 60); eGFR For Non-African Americans > 60 (> 60)
--- NOTE | 2016-09-12 09:04 | Event Note ---
<Gisell Johnson - Last Filed: 09/12/16 09:00> Date of Encounter: 09/12/16 Time of Encounter: 09:00 76 year old male evaluated at bedside. Patient was supposed to be discharged yesterday but he was kept because of elevated WBC. 2 view chest xray and urinalysis were negative. Patient was not showing any obvious signs of infection on physical exam. Today, his WBC is normal. Patient appears to be doing well today. He denies nausea, vomiting, diarrhea, fever, chills, chest pain, and shortness of breath. He complains of mild dizziness, and denies any further problems today. Physical Exam: General: alert and oriented x3, no acute distress. patient is obese CV: RRR, no murmurs, rubs, or gallops. Resp: Clear to auscultation bilaterally. Abdomen: obese, soft, non distended, non tender, positive bowel sounds. Extremity: no cyanosis, edema, or clubbing. Plan: will discharge patient home today, he has qualified for home oxygen. He will get outpatient PFTs done. please see discharge summary. <Speedy Hodges - Last Filed: 09/12/16 12:51> Date of Encounter: 09/12/16 Kindly see my addendum in the discharge summary
[2016-09-12] MEDS: Aspirin Enteric Coated 325 MG Tablet PO SCH (09:29)
[2016-09-12] MEDS: Isosorbide MONOnitrate (24 HR) 30 MG TAB.ER.24H PO SCH (09:29)
[2016-09-12] MEDS: Lisinopril 20 MG TABLET PO SCH (09:30)
--- NOTE | 2016-09-12 12:53 | Physician Discharge Referral ---
Home Health/Hosp Referral Info Transfer to: Home Health Attending Provider: Dr. Hodges Provider in Charge Post Discharge: PCP - Diagnosis (1) Acute respiratory failure Priority: Primary Status: Acute (2) CAD (coronary artery disease) Priority: Secondary Status: Chronic (3) DMII (diabetes mellitus, type 2) Priority: Secondary Status: Chronic (4) Physical deconditioning Priority: Primary Status: Acute (5) Leukocytosis Priority: Primary Status: Resolved - Respiratory Orders Oxygen / L per min (2-3 L per minute, to achieve O2 saturation of at least 90%) Smoking Cessation: Smoking cessation has been advised. For more information, call the [place] Tobacco Quit Line at 2-336-DOMY-NOW. - Diet/Nutrition Diet/Nutrition Orders: Cardiac - Activity Activity Orders: Up ad soren - Services Needed Following services are medically necessary services: Nursing, Home Health Aide - Transfer Medications Prescriptions: RX: Metoprolol [Lopressor] 12.5 mg PO BID #60 tab Home Medications: RX: Allopurinol [Zyloprim 100 MG] 200 mg PO DAILY 09/09/16 [History] RX: Aspirin 325 mg PO DAILY 09/09/16 [History] RX: Atorvastatin [Lipitor] 40 mg PO HS 09/09/16 [History] RX: Citalopram Hydrobromide [Celexa] 40 mg PO DAILY 09/09/16 [History] RX: Clopidogrel Bisulfate [Plavix] 75 mg PO DAILY 09/09/16 [History] RX: Isosorbide MONOnitrate (24 HR) [Imdur] 30 mg PO DAILY 09/09/16 [History] RX: Lisinopril [Zestril] 20 mg PO DAILY 09/09/16 [History] RX: Memantine HCl/Donepezil HCl [Namzaric 28 mg-10 mg Capsule] 1 each PO QPM [History] RX: Nitroglycerin [Nitrostat] 0.4 mg SL Q5M PRN 09/09/16 [History] RX: Omeprazole [PriLOSEC] 40 mg PO BID 09/09/16 [History] RX: Potassium Chloride [Klor-Con 10] 10 meq PO DAILY 09/09/16 [History] RX: Quetiapine Fumarate [Seroquel] 25 mg PO QAM 09/09/16 [History] RX: Tamsulosin [Flomax] 0.4 mg PO DAILY 09/09/16 [History] RX: Tramadol HCl [Ultram] 50 mg PO TID PRN 09/09/16 [History] RX: Triamcinolone Acet 0.1% CRM [Kenalog] 1 appl TP BID 09/09/16 [History] RX: clonazePAM [Klonopin] 0.5 mg PO HS 09/09/16 [History] RX: metFORMIN [Glucophage] 500 mg PO DAILY 09/09/16 [History] RX: Metoprolol [Lopressor] 12.5 mg PO BID #60 tab 09/11/16 [Rx] Allergies/Adverse Reactions: Allergies Penicillins Allergy (Verified 05/12/15 08:28) Rash Certification: Further, I certify that my clinical findings support that this patient is homebound (i.e. absences from home require considerable and taxing effort and are for medical reasons or uatsdin services or infrequently or short duration when for other reasons) because: Homebound Reason: Patient requires assistance of a person or device to safely leave home Attestation: My signature below is to certify that this patient is under my care and that I, or nurse practitioner, or a physician's judicial administrative assistant working with me, has a face-to -face encounter with this patient.
[2016-09-12 15:12] VITALS: BP 136/83
== END 2016-09-12 16:27 | disposition home health service (06) ==
LOC: EMEROO 12:34 → 2ANU 12:34
PROVIDERS: ADMIT Internal Medicine; ATTEND Internal Medicine

== ENCOUNTER 2020-04-25 12:39 | Inpatient (IN) ==
[2020-04-25] MEDS ORDERED: levoFLOXacin 750 MG/150 ML 750 MG/150 ML BAG IVPB ONE (13:00)
[2020-04-25] MEDS ORDERED: Aztreonam 2,000 MG in Water for inj. (sterile) 20 ML IVP ONE (13:00)
[2020-04-25] MEDS ORDERED: Acetaminophen 650 MG RECTAL SUPP RC ONE (13:00)
[2020-04-25] MEDS ORDERED: Vancomycin 1,750 MG/517.5 ML IV.SOLN IVPB ONE (13:00)
[2020-04-25 13:13] LABS: ABG Base Excess -3 mEq/L (-2 to 3); ABG HCO3 21 mEq/L (21-27); ABG Oxygen Saturation 83 % (95-98); ABG PCO2 34 mmHg (35-45); ABG PO2 47 mmHg (85-104); ABG TCO2 22 mEq/L (20-26); Blood Gas Modality BiLevel
[2020-04-25 13:34] LABS: Basophils % 0.3 %; Eosinophils % 0.1 %; Hematocrit 40.7 % (37.5-50.1); Hemoglobin 13.4 g/dL (12.9-16.9); Immature Granulocytes % 0.5 % (0-4); Lymphocytes # 0.5 K/mcL (0.6-4.6); Lymphocytes % 4.2 %; Mean Corpuscular HGB Conc 32.9 g/dL (31.6-35.5); Mean Corpuscular Hemoglobin 30.9 pg (28.0-33.3); Mean Corpuscular Volume 93.8 fL (83.0-100.0); Mean Platelet Volume 11.7 fL (9.4-12.4); Monocytes # 0.6 K/mcL (0.0-1.3); Monocytes % 5.6 %; Neutrophils # 9.9 K/mcL (1.6-8.9); Platelet Count 153 K/mcL (140-400); Red Blood Count 4.34 M/mcL (4.19-5.50); Red Cell Distribution Width 13.6 % (11.5-14.5); Segmented Neutrophils % 89.3 %
[2020-04-25 13:41] LABS: INR 1.2; Prothrombin Time 14.2 Seconds (9.4-12.1)
[2020-04-25] MEDS ORDERED: 0.9 % Sodium Chloride 1,000 ML IVC ONE (13:54)
[2020-04-25 14:04] LABS: Potassium 4.3 mEq/L (3.5-5.1); Troponin I 0.11 ng/mL (< 0.04)
[2020-04-25 14:24] LABS: Adenovirus Not Detected (Not Detect); Bordetella Pertussis Not Detected (Not Detect); Chlamydophila pneumoniae Not Detected (Not Detect); Coronavirus 229E Not Detected (Not Detect); Coronavirus HKU1 Not Detected (Not Detect); Coronavirus NL63 Not Detected (Not Detect); Coronavirus OC43 Not Detected (Not Detect); Human Metapneumovirus Not Detected (Not Detect); Human Rhinovirus/Enterovirus Not Detected (Not Detect); Influenza A Subtype 2009 H1 Not Detected (Not Detect); Influenza B Not Detected (Not Detect); Mycoplasma pneumoniae Not Detected (Not Detect); Parainfluenza Virus 1 Not Detected (Not Detect); Parainfluenza Virus 2 Not Detected (Not Detect); Parainfluenza Virus 3 Not Detected (Not Detect); Parainfluenza Virus 4 Not Detected (Not Detect); Respiratory Syncytial Virus Not Detected (Not Detect)
[2020-04-25 14:27] LABS: SARS-CoV-2 DETECTED (Not Detect)
[2020-04-25] MEDS ORDERED: Dexamethasone 4 MG/ML VIAL IVP ONE ×2 (14:44→16:41)
[2020-04-25] MEDS ORDERED: *HR* Heparin 5,000 UNIT/ML VIAL IVP PRN ×2 (14:44)
[2020-04-25] MEDS ORDERED: *HR* Heparin 5,000 UNIT/ML VIAL IVP ONE (14:44)
[2020-04-25 15:16] LABS: Hematocrit 38.5 % (37.5-50.1); Hemoglobin 12.6 g/dL (12.9-16.9); Mean Corpuscular HGB Conc 32.7 g/dL (31.6-35.5); Mean Corpuscular Volume 94.8 fL (83.0-100.0); Mean Platelet Volume 11.7 fL (9.4-12.4); Platelet Count 151 K/mcL (140-400); Red Blood Count 4.06 M/mcL (4.19-5.50); Red Cell Distribution Width 13.5 % (11.5-14.5); White Blood Count 10.3 K/mcL (4.3-11.1)
[2020-04-25 15:27] LABS: Heparin anti-factor XA UFH < 0.04 IU/mL (0.30-0.70); INR 1.2; Prothrombin Time 14.2 Seconds (9.4-12.1)
[2020-04-25] MEDS: Heparin 25,000UNIT/250ML 1/2NS 25,000 UNIT/250 ML IV.SOLN IVC SCH (15:31)
[2020-04-25] MEDS ORDERED: Ondansetron ODT 4 MG TAB.RAPDIS SL PRN (15:36)
[2020-04-25] MEDS ORDERED: Naloxone 0.4 MG/ML INJ IVP PRN (15:36)
[2020-04-25] MEDS ORDERED: Perflutren Lipid Microsphere 1.3 ML in 0.9 % Sodium Chloride 8.7 ML IVP PRN (15:46)
[2020-04-25] MEDS ORDERED: Furosemide 40 MG/4 ML VIAL IVP ONE (16:08)
[2020-04-25 16:21] LABS: Bacteria,Urine Few per hpf (None-Few); Bilirubin,Urine Negative (Negative); Blood,Urine Large (Negative); Clarity,Urine Turbid (Clear); Color,Urine Yellow (Yellow); Glucose,Urine (UA) Normal (Normal); Hyaline Casts,Urine Many per lpf (None Seen); Ketones,Urine Negative (Negative); Leukocyte Esterase,Urine Negative (Negative); Mucus,Urine Few per lpf (None-Few); Nitrite,Urine Negative (Negative); PH,Urine 5.5 pH Units (5.0-8.0); Protein,Urine 70 mg/dL (Neg-Trace); RBC,Urine 30-50 per hpf (0-3); Specific Gravity,Urine 1.026 (1.010-1.025); WBC,Urine 0-3 per hpf (0-3)
[2020-04-25 16:40] LABS: Albumin 3.6 g/dL (3.5-5.7); Albumin/Globulin Ratio 1.2 (1.1-2.2); Bilirubin,Direct 0.4 mg/dL (0.0-0.2); Bilirubin,Indirect 0.6 mg/dL (0.0-1.0); Total Protein 6.6 g/dL (6.4-8.9)
[2020-04-25 16:41] LABS: Magnesium 1.5 mg/dL (1.6-2.6); Phosphorous 3.1 mg/dL (2.7-4.5)
[2020-04-25] MEDS ORDERED: Acetaminophen 325 MG TABLET PO PRN (16:47)
[2020-04-25] MEDS ORDERED: Dextrose Gel 15 GM/37.5 ML TUBE PO PRN ×2 (17:04)
[2020-04-25] MEDS ORDERED: D5% in Water 1,000 ML IVC PRN (17:04)
[2020-04-25] MEDS ORDERED: *HR* Dextrose 50 % in Water (Vial) 50 ML VIAL IVP PRN (17:04)
[2020-04-25] MEDS: Tiotropium 10 INH DOSE IH SCH (18:19)
[2020-04-25] MEDS: Insulin LISPRO 300 UNITS/3 ML VIAL SUBQ SCH (21:38)
[2020-04-25 21:54] LABS: Sodium, Urine 27.3 mEq/L
[2020-04-26] MEDS: Insulin LISPRO 300 UNITS/3 ML VIAL SUBQ SCH ×5 (01:16→23:40)
[2020-04-26 03:05] LABS: ABG Base Excess -2 mEq/L (-2 to 3); ABG HCO3 23 mEq/L (21-27); ABG Oxygen Saturation 92 % (95-98); ABG PCO2 40 mmHg (35-45); ABG PH 7.36 pH Units (7.32-7.45); ABG PO2 67 mmHg (85-104); ABG TCO2 24 mEq/L (20-26); Blood Gas Modality AVAPS; Blood Gas VT 500 cc
[2020-04-26] MEDS: Tiotropium 10 INH DOSE IH SCH (08:03)
[2020-04-26 08:56] LABS: Hematocrit 38.1 % (37.5-50.1); Hemoglobin 12.6 g/dL (12.9-16.9); Mean Corpuscular HGB Conc 33.1 g/dL (31.6-35.5); Mean Corpuscular Hemoglobin 30.6 pg (28.0-33.3); Mean Corpuscular Volume 92.5 fL (83.0-100.0); Mean Platelet Volume 11.7 fL (9.4-12.4); Platelet Count 159 K/mcL (140-400); Red Blood Count 4.12 M/mcL (4.19-5.50); Red Cell Distribution Width 13.6 % (11.5-14.5); White Blood Count 13.8 K/mcL (4.3-11.1)
[2020-04-26] MEDS ORDERED: Dexamethasone 4 MG/ML VIAL IVP SCH (09:00)
[2020-04-26] MEDS: Dexamethasone Sodium Phos/PF 10 MG/ML VIAL IVP SCH (09:12)
[2020-04-26 09:14] LABS: BUN/Creatinine Ratio 33 (6-26); Blood Urea Nitrogen 45 mg/dL (8-23); Calcium 9.5 mg/dL (8.6-10.3); Carbon Dioxide 22 mEq/L (23-29); Chloride 105 mEq/L (98-107); Glucose 97 mg/dL (70-105); Osmolality,Calculated 295 (280-300); Potassium 4.3 mEq/L (3.5-5.1); Sodium 137 mEq/L (136-145); eGFR For African Americans > 60 (> 60); eGFR For Non-African Americans 50 (> 60)
[2020-04-26] MEDS: Heparin 25,000UNIT/250ML 1/2NS 25,000 UNIT/250 ML IV.SOLN IVC SCH (09:55)
[2020-04-26] MEDS ORDERED: ALPRAZolam 0.5 MG TABLET PO PRN (10:22)
[2020-04-26] MEDS: cefTRIAXone 1,000 MG in 0.9 % Sodium Chloride Mini Bag 100 ML IVPB SCH (11:52)
[2020-04-26] MEDS ORDERED: Furosemide 40 MG/4 ML VIAL IVP ONE ×2 (13:20→17:01)
[2020-04-26] MEDS: Morphine Sulfate 2 MG/ML SYRINGE IVP PRN (16:49)
[2020-04-27] MEDS: Morphine Sulfate 2 MG/ML SYRINGE IVP PRN ×2 (02:04→08:28)
[2020-04-27] MEDS: Insulin LISPRO 300 UNITS/3 ML VIAL SUBQ SCH ×3 (05:16→20:26)
[2020-04-27 05:54] LABS: Basophils % 0.1 %; Hematocrit 43.7 % (37.5-50.1); Hemoglobin 14.1 g/dL (12.9-16.9); Immature Granulocytes % 0.5 % (0-4); Lymphocytes # 0.5 K/mcL (0.6-4.6); Lymphocytes % 3.8 %; Mean Corpuscular HGB Conc 32.3 g/dL (31.6-35.5); Mean Corpuscular Hemoglobin 30.5 pg (28.0-33.3); Mean Corpuscular Volume 94.6 fL (83.0-100.0); Mean Platelet Volume 11.5 fL (9.4-12.4); Monocytes # 0.8 K/mcL (0.0-1.3); Monocytes % 5.7 %; Neutrophils # 12.7 K/mcL (1.6-8.9); Platelet Count 223 K/mcL (140-400); Red Blood Count 4.62 M/mcL (4.19-5.50); Red Cell Distribution Width 13.5 % (11.5-14.5); Segmented Neutrophils % 89.9 %; White Blood Count 14.1 K/mcL (4.3-11.1)
[2020-04-27 06:09] LABS: BUN/Creatinine Ratio 41 (6-26); Blood Urea Nitrogen 55 mg/dL (8-23); Carbon Dioxide 25 mEq/L (23-29); Chloride 105 mEq/L (98-107); Glucose 100 mg/dL (70-105); Osmolality,Calculated 307 (280-300); Potassium 4.3 mEq/L (3.5-5.1); Sodium 141 mEq/L (136-145); eGFR For African Americans > 60 (> 60); eGFR For Non-African Americans 52 (> 60)
[2020-04-27] MEDS: *HR* Enoxaparin 40 MG/0.4 ML SYRINGE SQ SCH (06:14)
[2020-04-27] MEDS: cefTRIAXone 1,000 MG in 0.9 % Sodium Chloride Mini Bag 100 ML IVPB SCH (07:40)
[2020-04-27] MEDS: Dexamethasone Sodium Phos/PF 10 MG/ML VIAL IVP SCH (07:40)
[2020-04-27] MEDS ORDERED: Scopolamine Patch 1.5 MG PATCH.TD72 TD ONE (09:15)
[2020-04-27] MEDS: Tiotropium 10 INH DOSE IH SCH (10:01)
[2020-04-27] MEDS: *HR* LORazepam 2 MG/ML VIAL IVP PRN ×3 (10:49→20:18)
[2020-04-27] MEDS: Furosemide 40 MG/4 ML VIAL IVP SCH (14:35)
[2020-04-27] MEDS: Doxycycline 100 MG in 0.9 % Sodium Chloride Mini Bag 100 ML IVPB SCH (17:11)
[2020-04-27] MEDS: Dexmedetomidine HCl 400 MCG/100 ML MLS IVC SCH (22:48)
[2020-04-28] MEDS: Dexmedetomidine HCl 400 MCG/100 ML MLS IVC SCH (04:23)
[2020-04-28 05:52] LABS: Basophils % 0.2 %; Hematocrit 43.6 % (37.5-50.1); Immature Granulocytes % 1.2 % (0-4); Lymphocytes # 0.6 K/mcL (0.6-4.6); Lymphocytes % 4.3 %; Mean Corpuscular HGB Conc 32.1 g/dL (31.6-35.5); Mean Corpuscular Hemoglobin 30.6 pg (28.0-33.3); Mean Corpuscular Volume 95.2 fL (83.0-100.0); Mean Platelet Volume 11.8 fL (9.4-12.4); Monocytes # 0.7 K/mcL (0.0-1.3); Monocytes % 5.6 %; Neutrophils # 11.8 K/mcL (1.6-8.9); Platelet Count 222 K/mcL (140-400); Red Blood Count 4.58 M/mcL (4.19-5.50); Red Cell Distribution Width 13.7 % (11.5-14.5); Segmented Neutrophils % 88.7 %; White Blood Count 13.3 K/mcL (4.3-11.1)
[2020-04-28 06:12] LABS: Calcium 10.2 mg/dL (8.6-10.3); Potassium 4.2 mEq/L (3.5-5.1)
[2020-04-28] MEDS: Doxycycline 100 MG in 0.9 % Sodium Chloride Mini Bag 100 ML IVPB SCH (06:31)
[2020-04-28] MEDS: *HR* Enoxaparin 40 MG/0.4 ML SYRINGE SQ SCH (06:32)
[2020-04-28] MEDS: Insulin LISPRO 300 UNITS/3 ML VIAL SUBQ SCH ×5 (06:41→23:48)
[2020-04-28] MEDS: Dexamethasone Sodium Phos/PF 10 MG/ML VIAL IVP SCH (09:29)
[2020-04-28] MEDS: cefTRIAXone 1,000 MG in 0.9 % Sodium Chloride Mini Bag 100 ML IVPB SCH (09:30)
[2020-04-28] MEDS: Furosemide 40 MG/4 ML VIAL IVP SCH (09:30)
[2020-04-28] MEDS: Tiotropium 10 INH DOSE IH SCH (11:44)
[2020-04-28] MEDS: *HR* LORazepam 2 MG/ML VIAL IVP PRN ×4 (15:10→23:18)
[2020-04-28] MEDS: Morphine Sulfate 2 MG/ML SYRINGE IVP PRN ×2 (15:15→20:48)
[2020-04-28] MEDS ORDERED: Vancomycin 0 MG in 0.9 % Sodium Chloride 250 ML IVPB SCH (18:00)
[2020-04-28] MEDS: Vancomycin 1,750 MG/517.5 ML IV.SOLN IVPB SCH (18:40)
[2020-04-28] MEDS ORDERED: *HR* Metoprolol 5 MG/5 ML VIAL IVP ONE (22:27)
[2020-04-28] MEDS: *HR* Metoprolol 5 MG/5 ML VIAL IVP PRN (22:34)
[2020-04-28 23:25] LABS: Basophils # 0.1 K/mcL (0.0-0.2); Basophils % 0.3 %; Hematocrit 47.1 % (37.5-50.1); Hemoglobin 15.1 g/dL (12.9-16.9); Immature Granulocytes % 1.5 % (0-4); Lymphocytes # 0.7 K/mcL (0.6-4.6); Lymphocytes % 4.2 %; Mean Corpuscular HGB Conc 32.1 g/dL (31.6-35.5); Mean Corpuscular Hemoglobin 30.7 pg (28.0-33.3); Mean Corpuscular Volume 95.7 fL (83.0-100.0); Mean Platelet Volume 11.6 fL (9.4-12.4); Monocytes # 0.6 K/mcL (0.0-1.3); Monocytes % 3.4 %; Neutrophils # 15.9 K/mcL (1.6-8.9); Platelet Count 259 K/mcL (140-400); Red Blood Count 4.92 M/mcL (4.19-5.50); Red Cell Distribution Width 13.9 % (11.5-14.5); Segmented Neutrophils % 90.6 %; White Blood Count 17.5 K/mcL (4.3-11.1)
[2020-04-28 23:45] LABS: Magnesium 2.5 mg/dL (1.6-2.6); Phosphorous 7.4 mg/dL (2.7-4.5)
[2020-04-28 23:48] LABS: Calcium 10.2 mg/dL (8.6-10.3); Potassium 4.2 mEq/L (3.5-5.1); Troponin I 0.06 ng/mL (< 0.04)
[2020-04-29] MEDS: *HR* Metoprolol 5 MG/5 ML VIAL IVP PRN (00:05)
[2020-04-29 01:26] LABS: Basophils # 0.1 K/mcL (0.0-0.2); Basophils % 0.3 %; Hematocrit 48.6 % (37.5-50.1); Hemoglobin 15.7 g/dL (12.9-16.9); Lymphocytes # 0.4 K/mcL (0.6-4.6); Lymphocytes % 2.4 %; Mean Corpuscular HGB Conc 32.3 g/dL (31.6-35.5); Mean Corpuscular Hemoglobin 30.3 pg (28.0-33.3); Mean Corpuscular Volume 93.6 fL (83.0-100.0); Mean Platelet Volume 11.9 fL (9.4-12.4); Monocytes # 0.8 K/mcL (0.0-1.3); Monocytes % 4.6 %; Neutrophils # 16.5 K/mcL (1.6-8.9); Platelet Count 277 K/mcL (140-400); Red Blood Count 5.19 M/mcL (4.19-5.50); Red Cell Distribution Width 13.9 % (11.5-14.5); Segmented Neutrophils % 90.7 %; White Blood Count 18.2 K/mcL (4.3-11.1)
[2020-04-29] MEDS: *HR* LORazepam 2 MG/ML VIAL IVP PRN ×5 (01:33→17:12)
[2020-04-29] MEDS: Morphine Sulfate 2 MG/ML SYRINGE IVP PRN ×5 (01:33→17:13)
[2020-04-29 01:43] LABS: Calcium 10.4 mg/dL (8.6-10.3); Potassium 4.7 mEq/L (3.5-5.1)
[2020-04-29] MEDS ORDERED: *HR* Metoprolol 5 MG/5 ML VIAL IVP PRN (01:58)
[2020-04-29] MEDS: DilTIAZem 50 MG in 0.9 % Sodium Chloride 40 ML IVC SCH ×2 (02:30→10:52)
[2020-04-29] MEDS: *HR* Enoxaparin 40 MG/0.4 ML SYRINGE SQ SCH (05:25)
[2020-04-29] MEDS: Insulin LISPRO 300 UNITS/3 ML VIAL SUBQ SCH ×3 (05:30→18:08)
[2020-04-29] MEDS: Tiotropium 10 INH DOSE IH SCH (08:38)
[2020-04-29] MEDS: Dexamethasone Sodium Phos/PF 10 MG/ML VIAL IVP SCH (09:11)
[2020-04-29] MEDS: cefTRIAXone 1,000 MG in 0.9 % Sodium Chloride Mini Bag 100 ML IVPB SCH (10:10)
[2020-04-29 12:36] VITALS: BP 189/68
[2020-04-29] MEDS: Vancomycin 1,750 MG/517.5 ML IV.SOLN IVPB SCH (18:09)
== END 2020-04-29 19:10 | disposition expired | DRG 871 ==
LOC: EMEROOARM 12:39 → 2NNU 12:39 → SUATTDRO 17:55 → 2NNU 20:05
PROVIDERS: ADMIT Family Medicine; ATTEND Internal Medicine